=== PATIENT | male | born 1955 ===

== ENCOUNTER 2017-08-16 11:51 | Day surgery (SDC) | payer MEDICAID ==
[2017-08-16] MEDS ORDERED: Propofol 10 mg/ml Inj (20 ML) ONE (13:39)
[2017-08-16] MEDS ORDERED: Midazolam 2 MG/2 ML VIAL ONE (13:39)
[2017-08-16] MEDS ORDERED: Ciprofloxacin 400mg/200ml D5W 400 MG/200 ML BAG IVPB ONE (13:40)
[2017-08-16] MEDS ORDERED: Lidocaine 2% Jelly (Uro-Jet) ONE (13:41)
[2017-08-16] MEDS ORDERED: Lactated Ringer's 1,000 ML IV ONE (13:43)
[2017-08-16] MEDS: Gentamicin 160 MG in Sodium Chloride 0.9% 100 ML IVPB ONE ×2 (14:01→14:10)
--- NOTE | 2017-08-16 14:20 | PCM.SURG1 ---
Surgeon's Initial Post Op Note - Surgeon's Notes Surgeon: Gloria Injection Molding Machine Offbearer: YINA Type of Anesthesia: General LMA Anesthesia Administered By: staff Pre-Operative Diagnosis: BPH/CONTRERAS Operative Findings: EP with CONTRERAS Post-Operative Diagnosis: BPH/CONTRERAS Operation Performed: TULAP Specimen/Specimens Removed: NA Estimated Blood Loss: EBL {In ML}: 0 Blood Products Given: N/A Drains Used: No Drains Post-Op Condition: Good Date of Surgery/Procedure: 08/16/17 Time of Surgery/Procedure: 14:19
[2017-08-16] MEDS ORDERED: HYDROmorphone 0.5 mg/0.5 ml ISec IVP PRN (14:28)
[2017-08-16] MEDS ORDERED: Lactated Ringer's 500 ML IV ONE (15:15)
[2017-08-16 16:13] VITALS: RESP 16
[2017-08-16 16:44] VITALS: BP 141/84; PULSE 82; TEMP 97.5; O2SAT 99
--- NOTE | 2017-08-17 01:11 | OP ---
PROCEDURE DATE: 08/16/2017 PREOPERATIVE DIAGNOSES: Benign prostatic hypertrophy and bladder outlet obstruction. POSTOPERATIVE DIAGNOSES: Benign prostatic hypertrophy and bladder outlet obstruction. PROCEDURE: Cystoscopy and transurethral laser ablation of the prostate (green light laser prostate ablation). DESCRIPTION OF PROCEDURE: As follows; prior to the procedure, a detailed informed consent was obtained from the patient. He is aware of all risks and complications of procedure and alternate methods of managing BPH. He consented the procedure and its risks, he was brought into the room and draped and prepped in the usual manner. A time-out was taken according to the rules and regulations of . The patient was then cystoscoped with a laser cystoscope. The previous cystoscopic findings were confirmed. The laser resectoscope was inserted within the sheath, and the patient had a prostate tissue vaporization began at 11 o'clock and carried down to 6 o'clock and vaporizing all obstructing tissue from just distal to the bladder neck to just proximal to the verumontanum. The left lateral lobe, the base tissue and the roof tissue were vaporized in the similar fashion. Care was taken to avoid injury to the ureteral orifices, external sphincter or verumontanum, and none occurred. The patient tolerated this procedure well. The bladder was filled with normal saline and the Long was removed and #20 [id number] catheter was inserted and inflated with normal amount of saline. The irrigation was clear. The patient was sent to the recovery room in good condition. He will follow up tomorrow for Long removal and will be kept on Cipro. Leno Castro MD
== END 2017-08-16 16:40 | disposition home or self-care (01) ==
LOC: C.SDS 11:51
PROVIDERS: ATTEND Urology
DX: N40.1 Benign prostatic hyperplasia with lower urinary tract symptoms (principal)
CPT/HCPCS: 52648; J0744; J1580; J7120